=== PATIENT | male | born 1965 | race Caucasian/White ===

== ENCOUNTER 2020-03-17 16:30 | Emergency (ER) | payer BC ==
[2020-03-17] MEDS ORDERED: Famotidine 20 MG/2 ML SDV IVPUSH ONE (16:42)
[2020-03-17] MEDS ORDERED: Sodium Chloride 0.9% 10 ML Syringe FLUSH PRN (16:42)
[2020-03-17] MEDS ORDERED: Pantoprazole 40 MG Vial IVPUSH ONE (16:42)
--- NOTE | 2020-03-17 16:42 | EDM.PDOC ---
ED HPI GENERAL MEDICAL PROBLEM - General Chief Complaint: Abdominal Pain Stated Complaint: abdominal pain, left side Time Seen by Provider: 03/17/20 16:35 Source of Information: Reports: Patient, Old Records ([facility] records available), Other ([facility]) History Limitations: Reports: No Limitations - History of Present Illness INITIAL COMMENTS - FREE TEXT/NARRATIVE: The patient was brought to the emergency room via transport vehicle from [facility] for evaluation of sudden onset 5/10 sharp left upper quadrant and left CVA tenderness with a mildly loose bowel movement earlier this afternoon with a total of 3 bowel movements per day and the patient usually having 2 bowel movements per day. No history of food poisoning, known enclosure to infection, etc.. He denies any gross hematuria, colic, or other UTI symptoms. The patient denies any chest pain/pressure, heart flutter, dizziness, orthostasis, orthopnea, diaphoresis, paresthesias, recent decreased exercise tolerance, or any other anginal-type symptoms. The patient also denies any recent fever, wheezing, dyspnea, etc. with stable mild clear productive cough secondary to his tobacco use. Onset: Today, Sudden Onset Date: 03/17/20 Onset Time: 16:00 Duration: Constant Location: Reports: Abdomen. Denies: Head, Face, Neck, Chest, Back, Upper Extremity, Left, Upper Extremity, Right, Radiates to Quality: Reports: Sharp Severity: Moderate Improves with: Reports: None Worsens with: Reports: None Context: Reports: Other (As above). Denies: Sick Contact, Trauma Associated Symptoms: Reports: Cough, cough w sputum. 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 (see below) (None) Left Upper Abdomen Pain Score (Numeric/FACES): 5 Left Lower Abdomen Pain Score (Numeric/FACES): 5 - Related Data Allergies Allergy/AdvReac Type Severity Reaction Status Date / Time No Known Allergies Allergy Verified 03/17/20 16:40 Home Meds: Home Meds Apixaban [Eliquis] 5 mg PO BID 03/17/20 [History] Cyclobenzaprine [Flexeril] 10 mg PO TID PRN 03/17/20 [History] Dulaglutide [Trulicity] 1.5 mg SQ WEEKLY 03/17/20 [History] Losartan [Cozaar] 50 mg PO DAILY 03/17/20 [History] Metoprolol Succinate [Toprol Xl] 50 mg PO DAILY 03/17/20 [History] Multivitamin [Multi-Day Vitamins] 1 each PO DAILY 03/17/20 [History] Omeprazole 20 mg PO BIDAC #30 cap.sr 03/17/20 [Rx] atorvaSTATin Calcium [Lipitor] 10 mg PO BEDTIME 03/17/20 [History] glipiZIDE [Glucotrol XL] 10 mg PO BID 03/17/20 [History] metFORMIN HCl [Metformin HCl] 1,000 mg PO BID 03/17/20 [History] Past Medical History HEENT History: Reports: Impaired Vision, Other (See Below). Denies: Allergic Rhinitis, Cataract, Glaucoma, Hard of Hearing, Macular Degeneration, Otitis Media, Retinal Detachment Other HEENT History: Patient wears glasses. Cardiovascular History: Reports: Afib, Arrhythmia, Hypertension, Other (See Below). Denies: Aneurysm, Blood Clots/VTE/DVT, CAD, Heart Failure, Heart Murmur, High Cholesterol, AR, PVD, Syncope Other Cardiovascular History: PACs. Respiratory History: Reports: None, Intubation, Previous. Denies: Asthma, Bronchitis, Recurrent, COPD, Intubation, Difficult, PE, Pneumonia, Recurrent, Pneumothorax, Sleep Apnea, TB Gastrointestinal History: Reports: Chronic Diarrhea, Colon Polyp, Diverticulosis, GERD, Other (See Below). Denies: Celiac Disease, Cholelithiasis, Chronic Constipation, Fecal Incontinence, Gastritis, GI Bleed, Hepatitis, Inflammatory Bowel Disease, Irritable Bowel Syndrome, Jaundice, Pancreatitis, PUD Other Gastrointestinal History: Previous unknown type of colonic polyp in the sigmoid region at time of colonoscopy in 2014 as below. Ventral abdominal hernia. Chronic mild diarrhea after rectal fistula removal as below. Genitourinary History: Reports: None. Denies: Acute Renal Failure, BPH, Chronic Renal Insuffiency, Diabetic Nephropathy, Renal Calculus, STD, Urinary Incontinence, UTI, Recurrent Musculoskeletal History: Reports: Back Pain, Chronic, Fracture, Gout, Osteoa rthritis, Other (See Below). Denies: Arthritis, Neck Pain, Chronic, RA, SLE Other Musculoskeletal History: Right ankle fractures x2 as a teenager with left ankle fracture x1 as a teenager secondary to basketball injuries. Neurological History: Reports: Concussion, Headaches, Chronic, Head Trauma, Migraines, Neuropathy, Diabetic, Neuropathy, Peripheral, Other (See Below). Denies: Cerebral Aneurysms, CVA, MS, Parkinson's, Seizure, TIA Other Neuro History: Head concussion at about age 50. Psychiatric History: Reports: None. Denies: Abuse, Victim of, ADD, ADHD, Addiction, Anxiety, Depression, Psych Hospitalization(s), PTSD, Suicide Attempt, Suicidal Ideation Endocrine/Metabolic History: Reports: Diabetes, Type II, Obesity/BMI 30+. Denies: Hypothyroidism, IDDM Hematologic History: Reports: None. Denies: Anemia, Blood Transfusion(s), Iron Deficiency Immunologic History: Reports: None. Denies: AIDS, HIV, SLE Oncologic (Cancer) History: Reports: None. Denies: Basal Cell Carcinoma, Colon, Hodgkin's Lymphoma, Leukemia, Lymphoma, Malignant Melanoma, Non-Hodgkin's Lymphoma, Prostate, Squamous Cell Carcinoma Dermatologic History: Reports: Psoriasis. Denies: Eczema - Infectious Disease History Infectious Disease History: Reports: None. Denies: C-Difficile, Chicken Pox, Measles, Meningitis, Mononucleosis, Mumps, Pertussis (Whooping Cough), Rheumatic Fever, Rubella, Scarlet Fever, Shingles, TB, VRE - Past Surgical History Head Surgeries/Procedures: Reports: None HEENT Surgical History: Reports: Oral Surgery. Denies: Adenoidectomy, Cataract Surgery, Detached Retina, Eye Surgery, Laser Surgery, Myringotomy w Tube(s), Naso-Sinus Surgery, Tonsillectomy Other HEENT Surgeries/Procedures: Vernon teeth extraction x1 in 1985. Cardiovascular Surgical History: Reports: Vascular Surgery, Other (See Below) Other Cardiovascular Surgeries/Procedures: Electrocardioversion for atrial fibrillation in 2011. Right proximal arm artery repair using venous graft from the right leg in 2007 secondary to a trauma with evelina in the proximal arm secondary to a Workmen's Compensation injury. No fracture at that time. Respiratory Surgical History: Reports: None. Denies: Thoracentesis GI Surgical History: Reports: Colonoscopy (Multiple colonoscopies with last colonoscopy in about 2019 with previous history of polyp removals), Polypectomy, Other (See Below). Denies: Appendectomy, Cholecystectomy, EGD, Hernia, Abdominal, Hernia, Inguinal, Hernia Repair/Other Other GI Surgeries/Procedures: Multiple colonoscopies with last colonoscopy on 01/23/2019 with previous colonoscopy with polypectomy as above on 01/15/2014. Rectal fissure repair in about 1999 Male Surgical History: Reports: None. Denies: Circumcision, TURP- Transurethral Resection of Prostate, Vasectomy Endocrine Surgical History: Reports: None. Denies: Thyroid Biopsy Neurological Surgical History: Reports: None. Denies: C-Spine, Discectomy, Intracranial, Laminectomy, Lumbar Spine, Sacral Spine, Thoracic Spine, Vertebroplasty Musculoskeletal Surgical History: Reports: Carpal Tunnel, Shoulder Surgery, Other (See Below). Denies: Arthroscopic Procedure, Ganglion Cyst, Joint Replacement, ORIF Other Musculoskeletal Surgeries/Procedures:: Right carpal tunnel release in about 1988. Right wrist ganglion cyst excision in about 1995. Right rotator cuff repair in 2007 secondary to above trauma as above. Oncologic Surgical History: Reports: None Dermatological Surgical History: Reports: None - Past Imaging History Past Imaging History: Reports: Cardiac Echo (Stress echocardiogram as below with previous echocardiogram on 07/30/2013.), CAT Scan (CT scan of the C-spine and brain on 12/11/[address] scan of the brain on 07/16/2012.), Stress Testing (Negative stress echocardiogram on 03/28/2015 with ejection fraction of 65%) Social & Family History - Family History GI: Reports: Colon Polyps, Other (See Below). Denies: Celiac Disease, Cholelithiasis, GERD, GI bleed, Inflammatory Bowel Disease, Irritable Bowel Syndrome, PUD Other GI Family History: Mother with history of colon cancer as below. : Reports: Renal Calculus, Other (See Below). Denies: Renal Disease/Insufficiency Other Family History: Sister with recurrent urolithiasis. - Tobacco Use Smoking Status *Q: Current Every Day Smoker Tobacco Use Within Last Twelve Months: Cigarettes Years of Tobacco use: 33 Packs/Tins Daily: 0.5 Packs/Tins Daily Comment: Started smoking at age 21. Maximum use of 1.5 packs/day. Used Tobacco, but Quit: No Smoking Cessation Information Provided To Patient: Yes Second Hand Smoke Exposure: No Second Hand Smoke Education Provided: No - Alcohol Use Alcohol Use History: Yes Days Per Week of Alcohol Use: 0 Number of Drinks Per Day: 1 Number of Drinks Per Day Comment: Usually beer every 6 months. No previous DWIs, problems with alcohol abuse, etc.. 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 ED EXAM, GI/ABD - Physical Exam Exam: See Below Exam Limited By: No Limitations General Appearance: Alert, WD/WN, No Apparent Distress Head: Atraumatic, Normocephalic. No: Facial Swelling, Facial Tenderness, Sinus Tenderness Neck: Normal Inspection, Supple, Non-Tender, Full Range of Motion. No: Lymphadenopathy (L), Lymphadenopathy (R), Thyromegaly Respiratory/Chest: No Respiratory Distress, Lungs Clear, Normal Breath Sounds, No Accessory Muscle Use, Chest Non-Tender. No: Pleural Rub, Retractions Cardiovascular: Normal Peripheral Pulses, Regular Rate, Rhythm, No Edema, No Gallop, No JVD, No Murmur, No Rub. No: Gallop/S3, Gallop/S4, Friction Rub GI/Abdominal Exam: Normal Bowel Sounds, No Distention, No Abnormal Bruit, No Mass, Tender (Mild to moderate left upper quadrant palpation pain extending to the left CVA region), Hernia (10 cm right mid nonincarcerated ventral abdominal hernia). No: Guarding, Rigid, Rebound (Male) Exam: Deferred Rectal (Males) Exam: Deferred Back Exam: Normal Inspection, Full Range of Motion. No: CVA Tenderness (L), CVA Tenderness (R), Muscle Spasm Extremities: Normal Inspection, Normal Range of Motion, Non-Tender, No Pedal Edema, Normal Capillary Refill. No: Kanika's Sign Neurological: Alert, Oriented, CN II-XII Intact, Normal Cognition, Normal Gait, Normal Reflexes (Negative Babinski's), No Motor/Sensory Deficits Psychiatric: Normal Affect, Normal Mood Skin Exam: Warm (Is that like a sharp pain sharp), Dry, Intact, Normal Color, No Rash. No: Diaphoretic, Wound/Incision Lymphatic: No Adenopathy Course - Vital Signs Last Recorded V/S: Last Vital Signs Temp 36.4 C 03/17/20 16:35 Pulse 79 03/17/20 18:10 Resp 15 03/17/20 18:10 BP 126/89 03/17/20 18:10 Pulse Ox 97 03/17/20 18:10 Vital Signs - 24 hr 03/17/20 03/17/20 03/17/20 16:35 16:48 17:03 Temperature [ 36.4 C Oral] Pulse, 72 84 83 Peripheral [ Pulse Oximetry] Respiratory 19 15 15 Rate Blood Pressure 139/83 143/81 H 139/83 [Right Upper Arm] O2 Sat by Pulse 98 96 97 Oximetry 03/17/20 03/17/20 03/17/20 17:30 17:49 18:10 Temperature [ Oral] Pulse, 81 80 79 Peripheral [ Pulse Oximetry] Respiratory 15 14 15 Rate Blood Pressure 113/77 138/83 126/89 [Right Upper Arm] O2 Sat by Pulse 97 97 97 Oximetry - Orders/Labs/Meds Orders: Active Orders 24 hr Category Date Time Status Abdomen Pelvis wo Cont [CT] Stat Exams 03/17/20 18:15 Ordered Abdomen Series w Chest 1V [CR] Stat Exams 03/17/20 16:42 Taken CULTURE URINE [RM] Stat Lab 03/17/20 17:50 Received Obtain Past Medical Record [OM.PC] Urgent Oth 03/17/20 16:42 Active Peripheral IV Insertion Adult [OM.PC] Stat Oth 03/17/20 16:42 Ordered Resuscitation Status Stat Resus Stat 03/17/20 16:42 Ordered Labs: Laboratory Tests 03/17/20 03/17/20 03/17/20 Range/Units 16:50 16:50 16:50 WBC 7.1 (4.0-10.2) K/uL RBC 4.92 (4.33-5.41) M/uL Hgb 15.9 (13.1-16.8) g/dL Hct 45.5 (39.0-49.0) % MCV 92.5 (84.0-98.0) fL MCH 32.3 (28.2-33.3) pg MCHC 34.9 (31.7-36.0) g/dL RDW 13.0 (11.2-14.1) % Plt Count 166 (150-350) K/uL Neut % (Auto) 69.6 (45.0-80.0) % Lymph % (Auto) 21.2 (10.0-50.0) % Warren % (Auto) 7.1 (2.0-14.0) % Eos % (Auto) 1.4 (0.0-5.0) % Baso % (Auto) 0.7 (0.0-2.0) % Neut # (Auto) 4.92 (1.40-7.00) K/uL Lymph # (Auto) 1.50 (0.50-3.50) K/uL Warren # (Auto) 0.50 (0.00-1.00) K/uL Eos # (Auto) 0.10 (0.00-0.50) K/uL Baso # (Auto) 0.05 (0.00-0.20) K/uL PT 10.2 (9.5-12.0) SEC INR 1.0 APTT 27.2 (24.5-32.8) SEC Sodium (136-145) mmol/L Potassium (3.5-5.1) mmol/L Chloride (98-107) mmol/L Carbon Dioxide (21.0-32.0) mmol/L BUN (7-18) mg/dL Creatinine (0.51-1.17) mg/dL Est Cr Clr Drug Dosing Estimated GFR (MDRD) mL/min Glucose (74-106) mg/dL Lactic Acid (0.4-2.0) mmol/L Uric Acid (2.6-7.2) mg/dL Calcium (8.5-10.1) mg/dL Magnesium (1.8-2.4) mg/dL Total Bilirubin (0.2-1.0) mg/dL Direct Bilirubin (0.0-0.2) mg/dL Indirect Bilirubin mg/dL AST (15-37) U/L ALT (12-78) U/L Alkaline Phosphatase (46-116) IU/L Total Protein (6.4-8.2) g/dL Albumin (3.4-5.0) g/dL Amylase 25 (25-115) U/L Lipase (73-393) U/L Specimen Type Urine Color Urine Appearance Urine pH (5.0-9.0) Ur Specific [place] (1.005-1.030) Urine Protein (NEGATIVE) mg/dL Urine Glucose (UA) (NEGATIVE) mg/dL Urine Ketones (NEGATIVE) mg/dL Urine Occult Blood (NEGATIVE) Urine Nitrite (NEGATIVE) Urine Bilirubin (NEGATIVE) Urine Urobilinogen (0.2-1.0) E.U./dL Ur Leukocyte Esterase (NEGATIVE) Urine RBC /HPF Urine WBC /HPF Ur Epithelial Cells /LPF Urine Bacteria (NONE TO FEW) /HPF 03/17/20 03/17/20 03/17/20 Range/Units 16:50 16:50 16:50 WBC (4.0-10.2) K/uL RBC (4.33-5.41) M/uL Hgb (13.1-16.8) g/dL Hct (39.0-49.0) % MCV (84.0-98.0) fL MCH (28.2-33.3) pg MCHC (31.7-36.0) g/dL RDW (11.2-14.1) % Plt Count (150-350) K/uL Neut % (Auto) (45.0-80.0) % Lymph % (Auto) (10.0-50.0) % Warren % (Auto) (2.0-14.0) % Eos % (Auto) (0.0-5.0) % Baso % (Auto) (0.0-2.0) % Neut # (Auto) (1.40-7.00) K/uL Lymph # (Auto) (0.50-3.50) K/uL Warren # (Auto) (0.00-1.00) K/uL Eos # (Auto) (0.00-0.50) K/uL Baso # (Auto) (0.00-0.20) K/uL PT (9.5-12.0) SEC INR APTT (24.5-32.8) SEC Sodium 140 (136-145) mmol/L Potassium 4.1 (3.5-5.1) mmol/L Chloride 104 (98-107) mmol/L Carbon Dioxide 24.4 (21.0-32.0) mmol/L BUN 17 (7-18) mg/dL Creatinine 0.61 (0.51-1.17) mg/dL Est Cr Clr Drug Dosing TNP Estimated GFR (MDRD) > 60 mL/min Glucose 219 H (74-106) mg/dL Lactic Acid 1.1 (0.4-2.0) mmol/L Uric Acid 5.2 (2.6-7.2) mg/dL Calcium 9.0 (8.5-10.1) mg/dL Magnesium 1.5 L (1.8-2.4) mg/dL Total Bilirubin 1.8 H 1.8 H (0.2-1.0) mg/dL Direct Bilirubin 0.3 H (0.0-0.2) mg/dL Indirect Bilirubin 1.5 mg/dL AST 23 (15-37) U/L ALT 42 (12-78) U/L Alkaline Phosphatase 69 (46-116) IU/L Total Protein 7.0 (6.4-8.2) g/dL Albumin 3.8 (3.4-5.0) g/dL Amylase (25-115) U/L Lipase 72 L (73-393) U/L Specimen Type Urine Color Urine Appearance Urine pH (5.0-9.0) Ur Specific [place] (1.005-1.030) Urine Protein (NEGATIVE) mg/dL Urine Glucose (UA) (NEGATIVE) mg/dL Urine Ketones (NEGATIVE) mg/dL Urine Occult Blood (NEGATIVE) Urine Nitrite (NEGATIVE) Urine Bilirubin (NEGATIVE) Urine Urobilinogen (0.2-1.0) E.U./dL Ur Leukocyte Esterase (NEGATIVE) Urine RBC /HPF Urine WBC /HPF Ur Epithelial Cells /LPF Urine Bacteria (NONE TO FEW) /HPF 03/17/20 Range/Units 17:50 WBC (4.0-10.2) K/uL RBC (4.33-5.41) M/uL Hgb (13.1-16.8) g/dL Hct (39.0-49.0) % MCV (84.0-98.0) fL MCH (28.2-33.3) pg MCHC (31.7-36.0) g/dL RDW (11.2-14.1) % Plt Count (150-350) K/uL Neut % (Auto) (45.0-80.0) % Lymph % (Auto) (10.0-50.0) % Warren % (Auto) (2.0-14.0) % Eos % (Auto) (0.0-5.0) % Baso % (Auto) (0.0-2.0) % Neut # (Auto) (1.40-7.00) K/uL Lymph # (Auto) (0.50-3.50) K/uL Warren # (Auto) (0.00-1.00) K/uL Eos # (Auto) (0.00-0.50) K/uL Baso # (Auto) (0.00-0.20) K/uL PT (9.5-12.0) SEC INR APTT (24.5-32.8) SEC Sodium (136-145) mmol/L Potassium (3.5-5.1) mmol/L Chloride (98-107) mmol/L Carbon Dioxide (21.0-32.0) mmol/L BUN (7-18) mg/dL Creatinine (0.51-1.17) mg/dL Est Cr Clr Drug Dosing Estimated GFR (MDRD) mL/min Glucose (74-106) mg/dL Lactic Acid (0.4-2.0) mmol/L Uric Acid (2.6-7.2) mg/dL Calcium (8.5-10.1) mg/dL Magnesium (1.8-2.4) mg/dL Total Bilirubin (0.2-1.0) mg/dL Direct Bilirubin (0.0-0.2) mg/dL Indirect Bilirubin mg/dL AST (15-37) U/L ALT (12-78) U/L Alkaline Phosphatase (46-116) IU/L Total Protein (6.4-8.2) g/dL Albumin (3.4-5.0) g/dL Amylase (25-115) U/L Lipase (73-393) U/L Specimen Type Urinvoid Urine Color Yellow Urine Appearance Clear Urine pH 5.5 (5.0-9.0) Ur Specific [place] 1.020 (1.005-1.030) Urine Protein Negative (NEGATIVE) mg/dL Urine Glucose (UA) 250 H (NEGATIVE) mg/dL Urine Ketones 15 H (NEGATIVE) mg/dL Urine Occult Blood Moderate H (NEGATIVE) Urine Nitrite Negative (NEGATIVE) Urine Bilirubin Negative (NEGATIVE) Urine Urobilinogen 0.2 (0.2-1.0) E.U./dL Ur Leukocyte Esterase Negative (NEGATIVE) Urine RBC 10-20 H /HPF Urine WBC 0-5 /HPF Ur Epithelial Cells Rare /LPF Urine Bacteria Rare (NONE TO FEW) /HPF Meds: Medications Discontinued Medications Generic Name Dose Route Start Last Admin Trade Name Freq PRN Reason Stop Dose Admin Famotidine 40 mg 03/17/20 16:42 03/17/20 17:07 Pepcid IVPUSH 03/17/20 16:43 40 mg ONETIME ONE Administration Lactated Ringer's 1,000 mls @ 999 mls/hr 03/17/20 18:09 03/17/20 18:26 Ringers, Lactated IV 03/17/20 19:09 999 mls/hr .BOLUS ONE Administration Pantoprazole Sodium 40 mg 03/17/20 16:42 03/17/20 17:05 Protonix Iv IVPUSH 03/17/20 16:43 40 mg ONETIME ONE Administration Sodium Chloride 10 ml 03/17/20 16:42 03/17/20 17:04 Saline Flush FLUSH 10 ml ASDIRECTED PRN Administration Keep Vein Open - Radiology Interpretation Free Text/Narrative:: 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 Acute abdominal x-ray shows evidence of mild beginning pulmonary obstructive disease with no cardiomegaly, CHF, pulmonary infiltrates, pneumothorax, free air, ileus, or obstruction. Moderate diffuse stool with very occasional fluid level and no intra-abdominal calcifications. Telephone consultation at 1954 hrs. this evening with the radiology department at [facility] in [place]. Preliminary verbal report of noncontrast CT of the abdomen and pelvis per stone protocol revealed an incidental intracalyceal left 3 mm stone with no evidence of obstruction with additional confirmation of previous diverticulosis without evidence of diverticulitis or other abnormalities. CT Results Date: 03/17/20 CT Results Time: 19:54 Departure - Departure Time of Disposition: 20:00 Disposition: Home, Self-Care 01 Condition: Good Clinical Impression: Diverticulosis, Hypomagnesemia, Nephrolithiasis, Tobacco abuse counseling, [place] disease Abdominal pain Qualifiers: Abdominal location: left upper quadrant Qualified Code(s): R10.12 - Left upper quadrant pain Osteoarthritis Qualifiers: Osteoarthritis location: multiple joints Osteoarthritis type: primary Qualified Code(s): M89.49 - Other hypertrophic osteoarthropathy, multiple sites Hyperlipidemia Qualifiers: Hyperlipidemia type: unspecified Qualified Code(s): E78.5 - Hyperlipidemia, unspecified Diabetes mellitus Qualifiers: Diabetes mellitus type: type 2 Diabetes mellitus alf insulin use: without alf use Diabetes mellitus complication status: without complication Qualified Code(s): E11.9 - Type 2 diabetes mellitus without complications Atrial fibrillation Qualifiers: Atrial fibrillation type: paroxysmal Qualified Code(s): I48.0 - Paroxysmal atrial fibrillation Gastritis Qualifiers: Gastritis type: unspecified gastritis Chronicity: acute - Discharge Information *PRESCRIPTION DRUG MONITORING PROGRAM REVIEWED*: Not Applicable *COPY OF PRESCRIPTION DRUG MONITORING REPORT IN PATIENT SONYA: Not Applicable Prescriptions: Omeprazole 20 mg PO BIDAC #30 cap.sr Instructions: Steps to Quit Smoking, [id number], Gastritis, Adult, [id number], Health Risks of Smoking, Abdominal Pain, Adult, [id number], Diverticulosis Referrals: PCP,Unknown [Ordering Only Provider] - Forms: ED Department Discharge Additional Instructions: 1. Follow up with your regular provider in 10-14 days as directed with recommended repeat CBC, magnesium level, and urine studies as below. Bring these discharge instructions with you to that visit and also have your regular provider review today's emergency room visit as discussed. Additional blood work, x-rays, etc. may be needed at that time depending on your symptoms at follow-up. In addition, your regular provider may schedule you for further evaluations as outlined in my progress note today. 2. Piatt diet including encouragement of oral fluids such as sports drinks, etc. for 24-48 hours as directed. Advance to high-fiber, diverticulosis, 1500- calorie ADA, and heart healthy diet as tolerated thereafter. 3. Work excuse- See Form 4. Stop all tobacco use TAMELA as directed/per provided information and consider contacting Quit LIne, etc.. 5. Immediately after this visit verify that your cellular telephone's voicemail has been activated and is empty. Also verify that your home telephone's answering machine is operating properly and has space to receive messages. Note that it is sometimes necessary for us to be able to contact you at a later date to discuss your medical care. 6. Please remember that we are ALWAYS here for you and want to answer any questions you may have. Feel free to call the hospital any time and we call you back TAMELA. 7. Urine tests should be repeated at follow up visit with possible repeat urine culture,etc. at that time. Today's urine culture is pending with results in about 2-3 days. We will call you, if we need to change your therapy. Sepsis Event Note (ED) - Focused Exam Vital Signs: Vital Signs Pulse Resp BP Pulse Ox 03/17/20 18:10 79 15 126/89 97 - Problem List & Annotations (1) Abdominal pain SNOMED Code(s): 80653547 Code(s): R10.9 - UNSPECIFIED ABDOMINAL PAIN Status: Acute Priority: High Onset Date: 03/17/20 Annotation/Comment:: Note CT scan of the abdomen and pelvis results as above. Initial suspicions of probable gastritis confirmed with no evidence of diverticulitis and incidental finding of nephrolithiasis, which is not the etiology of his current symptoms. Dietary issues, etc. discussed. [place] work excuse provided. Close follow-up by his regular provider for gastritis as per discharge instructions and as below. Symptoms significantly improved with high-dose IV Pepcid and IV Protonix during the emergency room. Note normal lipase and amylase with no evidence of pancreatitis despite his current Trulicity use. Patient to sign release of today's medical records for his regular provider prior to discharge. Qualifiers: Abdominal location: left upper quadrant Qualified Code(s): R10.12 - Left upper quadrant pain (2) Gastritis SNOMED Code(s): 6233689 Code(s): K29.70 - GASTRITIS, UNSPECIFIED, WITHOUT BLEEDING Status: Acute Priority: High Onset Date: 03/17/20 Annotation/Comment:: Suspected gastritis as above with history of tobacco use, etc. Overall good results with IV Pepcid and Protonix in the emergency room as above. Initiate high-dose oral Prilosec therapy with close follow-up by his regular provider. Further work-up depending on his clinical course, including stool for H. pylori antigen, EGD, etc. Qualifiers: Gastritis type: unspecified gastritis Chronicity: acute (3) Nephrolithiasis SNOMED Code(s): 89022087 Code(s): N20.0 - CALCULUS OF KIDNEY Status: Acute Priority: Medium Onset Date: 03/17/20 Annotation/Comment:: Patient did receive a 1 L IV bolus of lactated Ringer's with mild ketonuria noted. Note mild microhematuria with no evidence of acute infection, however urine specimen was set up for culture and sensitivity. incidental left-sided nephrolithiasis as above. Note previous history of hyperuricemia with normal uric acid level today. Oral fluid encouragement and consumption recommended. (4) Hypomagnesemia SNOMED Code(s): 698268740 Code(s): E83.42 - HYPOMAGNESEMIA Status: Acute Priority: Medium Onset Date: 03/17/20 Annotation/Comment:: Secondary to patient's recurrent borderline diarrhea no initiation of magnesium therapy for now. Close follow-up by regular provider as per discharge instructions. Consideration of IV magnesium sulfate infusion and/or low dose oral magnesium oxide therapy in the future depending on his clinical course. (5) Tobacco abuse counseling SNOMED Code(s): 008100022, 983222730, [id number] Code(s): Z71.6 - TOBACCO ABUSE COUNSELING Status: Chronic Priority: Medium Annotation/Comment:: Tobacco cessation strongly encouraged with information provided at discharge. (6) Osteoarthritis SNOMED Code(s): 302198698 Code(s): M19.90 - UNSPECIFIED OSTEOARTHRITIS, UNSPECIFIED SITE Status: Chronic Priority: Medium Annotation/Comment:: Stable by history. Qualifiers: Osteoarthritis location: multiple joints Osteoarthritis type: primary Qualified Code(s): M89.49 - Other hypertrophic osteoarthropathy, multiple sites (7) Hyperlipidemia SNOMED Code(s): 74416874 Code(s): E78.5 - HYPERLIPIDEMIA, UNSPECIFIED Status: Chronic Priority: Medium Annotation/Comment:: Currently under therapy. Patient congratulated about his intentional 33 pounds over the last 6 months with continued weight loss encouraged. Qualifiers: Hyperlipidemia type: unspecified Qualified Code(s): E78.5 - Hyperlipidemia, unspecified (8) Diabetes mellitus SNOMED Code(s): 79031519 Code(s): E11.9 - TYPE 2 DIABETES MELLITUS WITHOUT COMPLICATIONS Status: Chronic Priority: Medium Annotation/Comment:: Blood sugar mildly elevated at 219 today. Continue close follow-up by his regular provider. Qualifiers: Diabetes mellitus type: type 2 Diabetes mellitus ferry terminal agent insulin use: without alf use Diabetes mellitus complication status: without complication Qualified Code(s): E11.9 - Type 2 diabetes mellitus without complications (9) Atrial fibrillation SNOMED Code(s): 01675614 Code(s): I48.91 - UNSPECIFIED ATRIAL FIBRILLATION Status: Chronic Priority: Medium Annotation/Comment:: Normal sinus rhythm today with current Eliquis therapy. No chest pain or anginal type symptoms. Qualifiers: Atrial fibrillation type: paroxysmal Qualified Code(s): I48.0 - Paroxysmal atrial fibrillation (10) Diverticulosis SNOMED Code(s): 131232524 Code(s): K57.90 - DVRTCLOS OF INTEST, PART UNSP, W/O PERF OR ABSCESS W/O BLEED Status: Chronic Priority: Medium Onset Date: 01/15/14 Annotation/Comment:: No history of diverticulosis and benign sigmoid colonic polyp by colonoscopy on 01/15/2014. No evidence of diverticulitis in today CT scan. Information provided. (11) [place] disease SNOMED Code(s): 40749220 Code(s): E80.4 - GILBERT SYNDROME Status: Acute Priority: Medium Onset Date: 03/17/20 Annotation/Comment:: Incidental finding no further treatment or work-up required. - Problem List Review Problem List Initiated/Reviewed/Updated: Yes - My Orders Last 24 Hours: My Active Orders 03/17/20 16:42 Abdomen Series w Chest 1V [CR] Stat Obtain Past Medical Record [OM.PC] Urgent Peripheral IV Insertion Adult [OM.PC] Stat Resuscitation Status Stat 03/17/20 17:50 CULTURE URINE [RM] Stat 03/17/20 18:15 Abdomen Pelvis wo Cont [CT] Stat - Assessment/Plan Last 24 Hours: My Active Orders 03/17/20 16:42 Abdomen Series w Chest 1V [CR] Stat Obtain Past Medical Record [OM.PC] Urgent Peripheral IV Insertion Adult [OM.PC] Stat Resuscitation Status Stat 03/17/20 17:50 CULTURE URINE [RM] Stat 03/17/20 18:15 Abdomen Pelvis wo Cont [CT] Stat Assessment:: As above Plan: As above. Extensive precautions were given to the patient and his , who are in agreement with the treatment plan. See Patient Instructions for further treatment and plan.
[2020-03-17 17:12] LABS: PTT,PARTIAL THROMBOPLSTIN TIME 27.2 SEC (24.5-32.8)
[2020-03-17 17:22] LABS: CHLORIDE,CL 104 mmol/L (98-107); SODIUM,NA 140 mmol/L (136-145)
[2020-03-17] MEDS ORDERED: Lactated Ringers 1,000 ML IV ONE (18:09)
== END 2020-03-17 20:00 | disposition home or self-care (01) ==
LOC: LL.ED 16:30
DX: K29.00 Acute gastritis without bleeding (principal); N20.0 Calculus of kidney; I48.0 Paroxysmal atrial fibrillation; E78.5 Hyperlipidemia, unspecified; M89.49 Other hypertrophic osteoarthropathy, multiple sites; E83.42 Hypomagnesemia; E80.4 Gilbert syndrome; K57.30 Diverticulosis of large intestine without perforation or abscess without bleeding; I10 Essential (primary) hypertension; E11.21 Type 2 diabetes mellitus with diabetic nephropathy; E11.42 Type 2 diabetes mellitus with diabetic polyneuropathy; F17.210 Nicotine dependence, cigarettes, uncomplicated; K21.9 Gastro-esophageal reflux disease without esophagitis; E66.9 Obesity, unspecified; Z68.36 Body mass index [BMI] 36.0-36.9, adult; Z79.01 Long term (current) use of anticoagulants; Z79.899 Other long term (current) drug therapy; Z71.6 Tobacco abuse counseling
CPT/HCPCS: 36415; 74022; 74176; 80053; 81001; 82150; 82247; 82248; 83605; 83690; 83735; 84550; 85025; 85610; 85730; 87086; 96361; 96374; 96375; 99284-25; C9113; J3490; J7120